=== PATIENT | female | born 1930 | race Caucasian/White ===

== ENCOUNTER → 2016-11-13 | Outpatient (CLI) | payer MEDICARE, BC ==
[~2016-11-13] MED LIST: ARMO30TA PO; ATOR10TA15 PO; CHOL50006; GABA300C5 PO; TRIA1SPR6 EACH NARE; TYLETAB34 PO
[2016-11-13 09:23] LABS: AUTOMATED NEUTROPHIL # 1.5 TH/MM3 (1.8-7.7); BASOPHIL % 0.8 % (0.0-2.0); EOSINOPHIL # 0.5 TH/MM3 (0-0.4); EOSINOPHIL % 13.2 % (0.0-4.0); HEMATOCRIT 35.7 % (35.0-46.0); HEMO FLAGS DIFF FINAL; LYMPH % 37.4 % (9.0-44.0); LYMPHOCYTE # 1.5 TH/MM3 (1.0-4.8); MEAN CELL VOLUME 97.1 FL (80.0-100.0); MEAN CORPUSCULAR HEMOGLOBIN 31.7 PG (27.0-34.0); MEAN CORPUSCULAR HGB CONC 32.7 % (32.0-36.0); MONO % 10.6 % (0.0-8.0); PLATELET COUNT 173 TH/MM3 (150-450); RED BLOOD COUNT 3.68 MIL/MM3 (4.00-5.30); RED CELL DISTRIBUTION WIDTH 13.3 % (11.6-17.2); WHITE BLOOD COUNT 3.9 TH/MM3 (4.0-11.0)
[2016-11-13 09:29] LABS: ANION GAP 5 MEQ/L (5-15); AST (GOT) 26 U/L (15-37); BICARBONATE 32.6 MEQ/L (21.0-32.0); BLOOD UREA NITROGEN 14 MG/DL (7-18); CHLORIDE 104 MEQ/L (98-107); GLOMERULAR FILTRATION RATE 83 ML/MIN (>89); GLUCOSE,FASTING 75 MG/DL (74-99); POTASSIUM 4.2 MEQ/L (3.5-5.1); SODIUM (NA) 142 MEQ/L (136-145)
[2016-11-13 09:40] LABS: ALKALINE PHOSPHATASE 92 U/L (45-117); ALT (GPT) 23 U/L (10-53); HDL CHOLESTEROL 66.9 MG/DL (40.0-60.0); LDL CHOLESTEROL 118 MG/DL (0-99); THYROXINE (T4) 6.7 MCG/DL (4.8-13.9); TOTAL BILIRUBIN ADULT 0.4 MG/DL (0.2-1.0)
[2016-11-13 16:05] LABS: HEMOGLOBIN A1b 1.5 %; HEMOGLOBIN Ao 85.2 %; HEMOGLOBIN LA1C 1.9 %
== END ==
LOC: PLAB 07:21
PROVIDERS: ATTEND Family Medicine
DX: E78.2 Mixed hyperlipidemia (principal); I10 Essential (primary) hypertension; E10.8 Type 1 diabetes mellitus with unspecified complications; E03.8 Other specified hypothyroidism; E55.9 Vitamin D deficiency, unspecified; Z79.899 Other long term (current) drug therapy
CPT/HCPCS: 36415; 80053; 80061; 82306; 83036; 84436; 84443; 84480; 85025

== ENCOUNTER → 2017-02-12 | Outpatient (CLI) | payer MEDICARE, BC ==
[2017-02-12 09:20] LABS: ANION GAP 5 MEQ/L (5-15); AST (GOT) 21 U/L (15-37); AUTOMATED NEUTROPHIL # 2.4 TH/MM3 (1.8-7.7); BASOPHIL # 0.1 TH/MM3 (0-0.2); BASOPHIL % 1.8 % (0.0-2.0); BLOOD UREA NITROGEN 17 MG/DL (7-18); CHLORIDE 105 MEQ/L (98-107); EOSINOPHIL # 0.5 TH/MM3 (0-0.4); EOSINOPHIL % 11.4 % (0.0-4.0); GLOMERULAR FILTRATION RATE 82 ML/MIN (>89); GLUCOSE,FASTING 82 MG/DL (74-99); HEMO FLAGS DIFF FINAL; LYMPH % 28.3 % (9.0-44.0); LYMPHOCYTE # 1.3 TH/MM3 (1.0-4.8); MEAN CELL VOLUME 98.4 FL (80.0-100.0); MEAN CORPUSCULAR HEMOGLOBIN 31.4 PG (27.0-34.0); MEAN CORPUSCULAR HGB CONC 31.9 % (32.0-36.0); MONO % 8.1 % (0.0-8.0); NEUT % 50.4 % (16.0-70.0); PLATELET COUNT 159 TH/MM3 (150-450); RED BLOOD COUNT 3.76 MIL/MM3 (4.00-5.30); RED CELL DISTRIBUTION WIDTH 14.2 % (11.6-17.2); SODIUM (NA) 142 MEQ/L (136-145); WHITE BLOOD COUNT 4.7 TH/MM3 (4.0-11.0)
[2017-02-12 09:26] LABS: ALKALINE PHOSPHATASE 84 U/L (45-117); ALT (GPT) 22 U/L (10-53); TOTAL BILIRUBIN ADULT 0.4 MG/DL (0.2-1.0)
== END ==
LOC: PLAB 07:13
PROVIDERS: ATTEND Family Medicine
DX: I10 Essential (primary) hypertension (principal); Z79.899 Other long term (current) drug therapy
CPT/HCPCS: 36415; 80053; 85025

== ENCOUNTER → 2017-03-14 | Outpatient (CLI) | payer MEDICARE, BC ==
[2017-03-14 09:13] LABS: AUTOMATED NEUTROPHIL # 2.6 TH/MM3 (1.8-7.7); BASOPHIL # 0.1 TH/MM3 (0-0.2); BASOPHIL % 1.3 % (0.0-2.0); EOSINOPHIL # 0.5 TH/MM3 (0-0.4); EOSINOPHIL % 10.2 % (0.0-4.0); HEMATOCRIT 37.1 % (35.0-46.0); HEMO FLAGS DIFF FINAL; LYMPH % 31.7 % (9.0-44.0); LYMPHOCYTE # 1.7 TH/MM3 (1.0-4.8); MEAN CELL VOLUME 98.6 FL (80.0-100.0); MEAN CORPUSCULAR HEMOGLOBIN 32.8 PG (27.0-34.0); MEAN CORPUSCULAR HGB CONC 33.3 % (32.0-36.0); MONO % 7.9 % (0.0-8.0); NEUT % 48.9 % (16.0-70.0); PLATELET COUNT 192 TH/MM3 (150-450); RED BLOOD COUNT 3.77 MIL/MM3 (4.00-5.30); RED CELL DISTRIBUTION WIDTH 14.3 % (11.6-17.2); WHITE BLOOD COUNT 5.4 TH/MM3 (4.0-11.0)
[2017-03-14 09:38] LABS: BLOOD UREA NITROGEN 14 MG/DL (7-18)
[2017-03-14 09:43] LABS: URIC ACID 2.1 MG/DL (2.6-6.0)
[2017-03-14 09:54] LABS: WESTERGREN SEDIMENTATION RATE 57 mm/hr (0-30)
[2017-03-14 09:55] LABS: ALKALINE PHOSPHATASE 137 U/L (45-117); FREE T3 2.56 PG/ML (2.18-3.98); RHEUMATOID FACTOR TRIGGER LESS THAN 10.0 IU/ML (0.0-14.9); THYROXINE (T4) 5.7 MCG/DL (4.8-13.9)
[2017-03-14 10:35] LABS: STREP ANTIBODY SCREEN NEG (NEG)
[2017-03-14 18:10] LABS: HEMOGLOBIN A1b 1.6 %; HEMOGLOBIN Ao 85.1 %; HEMOGLOBIN LA1C 1.9 %
[2017-03-15 15:04] LABS: ANA SCREEN NEG (NEG)
== END ==
LOC: PLAB 11:17
PROVIDERS: ATTEND Family Medicine
DX: I10 Essential (primary) hypertension (principal); E10.8 Type 1 diabetes mellitus with unspecified complications; E03.8 Other specified hypothyroidism; Z79.899 Other long term (current) drug therapy; M06.9 Rheumatoid arthritis, unspecified
CPT/HCPCS: 36415; 82310; 83036; 84075; 84100; 84436; 84443; 84481; 84520; 84550; 85025; 85652; 86038; 86140; 86403; 86430

== ENCOUNTER → 2017-07-15 | Outpatient (CLI) | payer MEDICARE, BC ==
[2017-07-15 10:27] LABS: AUTOMATED NEUTROPHIL # 2.9 TH/MM3 (1.8-7.7); BASOPHIL # 0.1 TH/MM3 (0-0.2); EOSINOPHIL # 0.4 TH/MM3 (0-0.4); EOSINOPHIL % 8.2 % (0.0-4.0); HEMATOCRIT 38.4 % (35.0-46.0); HEMO FLAGS DIFF FINAL; LYMPHOCYTE # 1.4 TH/MM3 (1.0-4.8); MEAN CELL VOLUME 99.6 FL (80.0-100.0); MEAN CORPUSCULAR HEMOGLOBIN 32.7 PG (27.0-34.0); MEAN CORPUSCULAR HGB CONC 32.9 % (32.0-36.0); MONO % 9.4 % (0.0-8.0); NEUT % 54.4 % (16.0-70.0); PLATELET COUNT 177 TH/MM3 (150-450); RED BLOOD COUNT 3.86 MIL/MM3 (4.00-5.30); RED CELL DISTRIBUTION WIDTH 13.7 % (11.6-17.2); WHITE BLOOD COUNT 5.3 TH/MM3 (4.0-11.0)
[2017-07-15 10:37] LABS: ANION GAP 5 MEQ/L (5-15); AST (GOT) 26 U/L (15-37); BICARBONATE 31.6 MEQ/L (21.0-32.0); BLOOD UREA NITROGEN 14 MG/DL (7-18); CHLORIDE 104 MEQ/L (98-107); GLOMERULAR FILTRATION RATE 92 ML/MIN (>89); GLUCOSE,FASTING 83 MG/DL (74-99); POTASSIUM 4.2 MEQ/L (3.5-5.1); SODIUM (NA) 141 MEQ/L (136-145)
[2017-07-15 10:48] LABS: ALKALINE PHOSPHATASE 97 U/L (45-117); ALT (GPT) 20 U/L (10-53); HDL CHOLESTEROL 84.8 MG/DL (40.0-60.0); LDL CHOLESTEROL 133 MG/DL (0-99); THYROXINE (T4) 8.3 MCG/DL (4.8-13.9); TOTAL BILIRUBIN ADULT 0.5 MG/DL (0.2-1.0)
== END ==
LOC: PLAB 06:49
PROVIDERS: ATTEND Family Medicine
DX: I10 Essential (primary) hypertension (principal); E78.2 Mixed hyperlipidemia; E03.8 Other specified hypothyroidism; Z79.899 Other long term (current) drug therapy
CPT/HCPCS: 36415; 80053; 80061; 84436; 84443; 84480; 85025

== ENCOUNTER 2017-08-15 16:43 | Inpatient (IN) | payer MEDICARE, BC ==
[~2017-08-15] VITALS: Ht 160 cm; Wt 59.8 kg
[2017-08-15 16:46] VITALS: BP 174/89; PULSE 80; RESP 16; TEMP 97.9; O2SAT 93
--- NOTE | 2017-08-15 17:19 | PD ---
HPI Chief Complaint: General Weakness Time Seen by Provider: 17:08 Travel History International Travel<30 days: No Contact w/Intl Traveler<30days: No Traveled to known affect area: No History of Present Illness HPI 87-year-old female presents the emergency department with ongoing generalized weakness and question of ongoing urinary tract infection. Patient was seen by Dr. Horner on Saturday and placed on Macrobid for UTI. Patient continues to have chills, urinary frequency, and generalized weakness and "not feeling well". Patient denies significant pain or cramps. No shortness of breath. No specific fevers. She is allergic to sulfa. PFSH Past Medical History Arthritis: Yes Autoimmune Disease: No Blood Disorders: No Cancer: Yes (BREAST) Cardiovascular Problems: Yes High Cholesterol: Yes Chemotherapy: No Chest Pain: Yes Coronary Artery Disease: Yes Diminished Hearing: No Endocrine: No Gastrointestinal Disorders: Yes Genitourinary: No Hypertension: Yes Immune Disorder: No Musculoskeletal: Yes Neurologic: No Psychiatric: No Reproductive: No Respiratory: Yes (O2 @NIGHT) Integumentary: Yes Radiation Therapy: Yes Ulcer: Yes ?: Not Tubal Ligation: Yes Past Surgical History AICD: No Appendectomy: Yes Arteriovenous Shunt: No Hysterectomy: Yes (1954) Insulin Pump: No Joint Replacement: No Pacemaker: No Thoracic Surgery: Yes Tonsillectomy: Yes Other Surgery: Yes (LT MASTECTOMY 1986-RT LUMPECTOMY 1989) Social History Alcohol Use: Yes (RARE) Tobacco Use: No Substance Use: No Allergies-Medications (Allergen,Severity, Reaction): Coded Allergies: Sulfa (Sulfonamide Antibiotics) (Unverified Allergy, Unknown, 08/15/17) Reported Meds & Prescriptions Reported Meds & Active Scripts Active Reported Nitrofurantoin Monohydrate Macrocrystals (Nitrofurantoin Monoh/Nitrofur Macro) 100 Mg Cap 100 Mg PO BID Enalapril (Enalapril Maleate) 2.5 Mg Tab 2.5 Mg PO BID Review of Systems Except as stated in HPI: all other systems reviewed are Neg General / Constitutional: No: Fever Eyes: No: Visual changes HENT: No: Headaches Cardiovascular: No: Chest Pain or Discomfort Respiratory: No: Shortness of Breath Gastrointestinal: Positive: Nausea, Loss of Appetite, No: Abdominal Pain Genitourinary: Positive: Frequency, No: Dysuria Musculoskeletal: No: Pain Skin: No Rash Neurologic: Positive: Weakness (generalized) Psychiatric: No: Depression Endocrine: No: Polydipsia Hematologic/Lymphatic: No: Easy Bruising Physical Exam Narrative GENERAL: Patient appears in no obvious distress. SKIN: Warm and dry. HEAD: Atraumatic. Normocephalic. EYES: Pupils equal and round. No scleral icterus. No injection or drainage. ENT: No nasal bleeding or discharge. Mucous membranes pink and moist. Pharynx is clear. Airway is patent. NECK: Trachea midline. Supple and nontender. CARDIOVASCULAR: Regular rate and rhythm. RESPIRATORY: No accessory muscle use. Clear to auscultation. Breath sounds equal bilaterally. GASTROINTESTINAL: Abdomen soft, non-tender, nondistended. Hepatic and splenic margins not palpable. MUSCULOSKELETAL: Extremities without clubbing, cyanosis, or edema. No obvious deformities. NEUROLOGICAL: Awake and alert. No obvious cranial nerve deficits. Motor grossly within normal limits. Five out of 5 muscle strength in the arms and legs. Normal speech. PSYCHIATRIC: Appropriate mood and affect; insight and judgment normal. Data Data Last Documented VS Vital Signs Date Time Temp Pulse Resp B/P (MAP) Pulse Ox O2 Delivery O2 Flow Rate FiO2 08/15/17 18:14 93 Nasal Cannula 2.00 08/15/17 18:12 70 23 154/75 (101) 156/68 (97) 08/15/17 16:46 97.9 Orders Orders Complete Blood Count With Diff (08/15/17 17:17) Comprehensive Metabolic Panel (08/15/17 17:17) Lipase (08/15/17 17:17) Lactic Acid (08/15/17 17:17) Prothrombin Time / Inr (Pt) (08/15/17 17:17) Act Partial Throm Time (Ptt) (08/15/17 17:17) Urinalysis - C+S If Indicated (08/15/17 17:17) Iv Access Insert/Monitor (08/15/17 17:17) Ecg Monitoring (08/15/17 17:17) Oximetry (08/15/17 17:17) Ondansetron Inj (Zofran Inj) (08/15/17 17:30) Sodium Chloride 0.9% Flush (Ns Flush) (08/15/17 17:30) Electrocardiogram (12/21/17 17:17) Sodium Chlorid 0.9% 500 Ml Inj (Ns 500 M (08/15/17 17:30) Chest, Single Ap (08/15/17 17:17) Urine Culture (08/15/17 17:30) Ckmb (Isoenzyme) Profile (08/15/17 17:56) Magnesium (Mg) (08/15/17 17:56) Act Partial Throm Time (Ptt) (08/15/17 17:56) Troponin I (08/15/17 17:56) Bilateral Bp Monitoring (08/15/17 17:56) Oxygen Administration (08/15/17 17:56) Sodium Chloride 0.9% Flush (Ns Flush) (08/15/17 18:00) Ct Abd/Pel W Iv Contrast(Rout) (08/15/17 18:11) Iohexol 350 Inj (Omnipaque 350 Inj) (08/15/17 18:37) Ceftriaxone Inj (Rocephin Inj) (08/15/17 19:00) Admit Order (Ed Use Only) (08/15/17 19:22) Labs Laboratory Tests Test 08/15/17 17:30 08/15/17 17:35 Urine Color YELLOW Urine Turbidity HAZY Urine pH 5.5 Urine Specific [place] 1.011 Urine Protein TRACE mg/dL Urine Glucose (UA) NEG mg/dL Urine Ketones NEG mg/dL Urine Occult Blood TRACE Urine Nitrite NEG Urine Bilirubin NEG Urine Urobilinogen 2.0 MG/DL Urine Leukocyte Esterase LARGE Urine RBC 2 /hpf Urine WBC 8 /hpf Urine Squamous Epithelial Cells 11 /hpf Urine Transitional Epithelial Cells 1 /hpf Urine Bacteria OCC /hpf Microscopic Urinalysis Comment CULTURE INDICATED White Blood Count 7.1 TH/MM3 Red Blood Count 3.78 MIL/MM3 Hemoglobin 12.3 GM/DL Hematocrit 37.0 % Mean Corpuscular Volume 97.9 FL Mean Corpuscular Hemoglobin 32.5 PG Mean Corpuscular Hemoglobin Concent 33.2 % Red Cell Distribution Width 13.5 % Platelet Count 163 TH/MM3 Mean Platelet Volume 8.6 FL Neutrophils (%) (Auto) 69.9 % Lymphocytes (%) (Auto) 10.8 % Monocytes (%) (Auto) 5.5 % Eosinophils (%) (Auto) 13.4 % Basophils (%) (Auto) 0.4 % Neutrophils # (Auto) 5.0 TH/MM3 Lymphocytes # (Auto) 0.8 TH/MM3 Monocytes # (Auto) 0.4 TH/MM3 Eosinophils # (Auto) 1.0 TH/MM3 Basophils # (Auto) 0.0 TH/MM3 CBC Comment DIFF FINAL Differential Comment Prothrombin Time 10.7 SEC Prothromb Time International Ratio 1.1 RATIO Activated Partial Thromboplast Time 22.6 SEC Blood Urea Nitrogen 16 MG/DL Creatinine 0.80 MG/DL Random Glucose 112 MG/DL Total Protein 7.7 GM/DL Albumin 3.0 GM/DL Calcium Level 9.3 MG/DL Alkaline Phosphatase 370 U/L Aspartate Amino Transf (AST/SGOT) 195 U/L Alanine Aminotransferase (ALT/SGPT) 173 U/L Total Bilirubin 0.8 MG/DL Sodium Level 138 MEQ/L Potassium Level 3.7 MEQ/L Chloride Level 103 MEQ/L Carbon Dioxide Level 30.8 MEQ/L Anion Gap 4 MEQ/L Estimat Glomerular Filtration Rate 68 ML/MIN Lactic Acid Level 1.2 mmol/L Magnesium Level 1.9 MG/DL Total Creatine Kinase 90 U/L Troponin I LESS THAN 0.02 NG/ML Lipase 136 U/L [facility] Medical Decision Making Medical Screen Exam Complete: Yes Emergency Medical Condition: Yes Medical Record Reviewed: Yes Differential Diagnosis Generalized weakness. Urinary tract infection not responding to outpatient therapy. Nausea. Narrative Course Patient appears medically stable at time of exam. CBC is unremarkable. CMP shows GFR 68, random glucose is 112. Lactic acid is 1.2, magnesium is 1.9, calcium is 9.3, AST is elevated at 195 as well as ALT of 173 with an alkaline phosphatase of 370 which is new for the patient. Urinalysis suggests ongoing urinary tract infection with large leukocytes esterase, 8 wbc's per high-power field and occasional dysuria. The urine is cultured again. CT of the abdomen/pelvis is ordered with IV contrast due to the increased LFTs and alkaline phosphatase. Patient is a 4 mg ODT and IV. Patient also given 500 mL normal saline bolus. CT shows no obvious acute findings. There is some bilateral consolidations noted in both lungs. Call was placed to Dr. Horner to discuss admission. Diagnosis Primary Impression: Elevated LFTs Additional Impressions: UTI (urinary tract infection) Qualified Codes: N30.00 - Acute cystitis without hematuria Failure of outpatient treatment Admitting Information Admitting Physician Requests: Observation Condition: Stable Armond Carcamow F. PA Aug 15, 2017 17:19
[2017-08-15] MEDS ORDERED: NITR100C4 PO (17:28)
[2017-08-15] MEDS ORDERED: ENAL2.5T PO (17:28)
[2017-08-15] MEDS ORDERED: ONDANSETRON HCL 4 MG/2 ML VIAL IVP ONE (17:30)
[2017-08-15] MEDS ORDERED: SODIUM CHLORIDE 0.9% FLUSH 10 ML FLUSH IV FLUSH PRN (17:30)
[2017-08-15] MEDS ORDERED: SODIUM CHLORID 0.9% 500 ML INJ 500 ML IV ONE (17:30)
--- NOTE | 2017-08-15 17:47 | RADRPT ---
EXAM DATE/TIME: 08/15/2017 17:39 [facility] COMPARISON: CHEST SINGLE AP, February 25, 2015, 12:24. INDICATIONS : Short of breath. MEDICAL HISTORY : Carcinoma, breast. SURGICAL HISTORY : None. ENCOUNTER: Initial ACUITY: 2 days PAIN SCORE: 0/10 LOCATION: Bilateral chest FINDINGS: Mild interstitial prominence similar to prior exam. No new focal pleural or parenchymal opacities. Ca rdiomediastinal contours are within normal limits. Surgical clips noted in the axilla bilaterally. Re mainder of the exam is unchanged. CONCLUSION: 1. No acute abnormality or significant interval change. Maximo Gan MD on August 15, 2017 at 17:44 Board Certified Radiologist. This report was verified electronically.
[2017-08-15 17:48] LABS: BASOPHIL % 0.4 % (0.0-2.0); EOSINOPHIL % 13.4 % (0.0-4.0); HEMO FLAGS DIFF FINAL; LYMPH % 10.8 % (9.0-44.0); LYMPHOCYTE # 0.8 TH/MM3 (1.0-4.8); MEAN CELL VOLUME 97.9 FL (80.0-100.0); MEAN CORPUSCULAR HEMOGLOBIN 32.5 PG (27.0-34.0); MEAN CORPUSCULAR HGB CONC 33.2 % (32.0-36.0); MONO % 5.5 % (0.0-8.0); NEUT % 69.9 % (16.0-70.0); PLATELET COUNT 163 TH/MM3 (150-450); RED BLOOD COUNT 3.78 MIL/MM3 (4.00-5.30); RED CELL DISTRIBUTION WIDTH 13.5 % (11.6-17.2); WHITE BLOOD COUNT 7.1 TH/MM3 (4.0-11.0)
[2017-08-15 17:51] LABS: BACTERIA, URINE OCC /hpf; BLOOD, URINE TRACE (NEG); COMMENT (UR) CULTURE INDICATED; CULTURE IF INDICATED CULTURE INDICATED; GLUCOSE,URINE NEG (NEG); KETONE, URINE NEG (NEG); NITRITE,URINE NEG (NEG); PH, URINE 5.5 (5.0-8.5); SQUAMOUS EPITHELIAL CELL URINE 11 /hpf (0-5); TRANSITIONAL EPI CELLS, URINE 1 /hpf; URINE COLOR YELLOW (YELLW/STRAW)
[2017-08-15 17:56] LABS: APTT (PATIENT) 22.6 SEC (24.3-30.1); INTERNATIONAL NORMALIZED RATIO 1.1 RATIO; PROTHROMBIN TIME - PATIENT 10.7 SEC (9.8-11.6)
[2017-08-15] MEDS ORDERED: SODIUM CHLORIDE 0.9% FLUSH 10 ML FLUSH IVF PRN (18:00)
--- NOTE | 2017-08-15 18:00 | PD ---
Physical Exam Date Seen by Provider: Aug 15, 2017 Narrative This patient presents with generalized weakness. She states that she was diagnosed with the urinary tract infection a couple days ago by her primary care provider and given Macrobid. She states that she has continued to be very fatigued. She has basically been bedridden. She subsequently presents to us today for treatment. Data Data Last Documented VS Vital Signs Date Time Temp Pulse Resp B/P (MAP) Pulse Ox O2 Delivery O2 Flow Rate FiO2 08/15/17 17:40 (117) Room Air 08/15/17 16:46 97.9 80 16 93 Orders Orders Complete Blood Count With Diff (08/15/17 17:17) Comprehensive Metabolic Panel (08/15/17 17:17) Lipase (08/15/17 17:17) Lactic Acid (08/15/17 17:17) Prothrombin Time / Inr (Pt) (08/15/17 17:17) Act Partial Throm Time (Ptt) (08/15/17 17:17) Urinalysis - C+S If Indicated (08/15/17 17:17) Iv Access Insert/Monitor (08/15/17 17:17) Ecg Monitoring (08/15/17 17:17) Oximetry (08/15/17 17:17) Ondansetron Inj (Zofran Inj) (08/15/17 17:30) Sodium Chloride 0.9% Flush (Ns Flush) (08/15/17 17:30) Electrocardiogram (08/15/17 17:17) Sodium Chlorid 0.9% 500 Ml Inj (Ns 500 M (08/15/17 17:30) Chest, Single Ap (08/15/17 17:17) Urine Culture (08/15/17 17:30) Labs Laboratory Tests Test 08/15/17 17:30 08/15/17 17:35 Urine Color YELLOW Urine Turbidity HAZY Urine pH 5.5 Urine Specific [place] 1.011 Urine Protein TRACE mg/dL Urine Glucose (UA) NEG mg/dL Urine Ketones NEG mg/dL Urine Occult Blood TRACE Urine Nitrite NEG Urine Bilirubin NEG Urine Urobilinogen 2.0 MG/DL Urine Leukocyte Esterase LARGE Urine RBC 2 /hpf Urine WBC 8 /hpf Urine Squamous Epithelial Cells 11 /hpf Urine Transitional Epithelial Cells 1 /hpf Urine Bacteria OCC /hpf Microscopic Urinalysis Comment CULTURE INDICATED White Blood Count 7.1 TH/MM3 Red Blood Count 3.78 MIL/MM3 Hemoglobin 12.3 GM/DL Hematocrit 37.0 % Mean Corpuscular Volume 97.9 FL Mean Corpuscular Hemoglobin 32.5 PG Mean Corpuscular Hemoglobin Concent 33.2 % Red Cell Distribution Width 13.5 % Platelet Count 163 TH/MM3 Mean Platelet Volume 8.6 FL Neutrophils (%) (Auto) 69.9 % Lymphocytes (%) (Auto) 10.8 % Monocytes (%) (Auto) 5.5 % Eosinophils (%) (Auto) 13.4 % Basophils (%) (Auto) 0.4 % Neutrophils # (Auto) 5.0 TH/MM3 Lymphocytes # (Auto) 0.8 TH/MM3 Monocytes # (Auto) 0.4 TH/MM3 Eosinophils # (Auto) 1.0 TH/MM3 Basophils # (Auto) 0.0 TH/MM3 CBC Comment DIFF FINAL Differential Comment MDM Supervised Visit with YUNIEL: Yes Narrative Course I, Dr. Salazar, have reviewed the advance practice practitioner's documentation and am in agreement, met with the patient face to face, made the diagnosis, and the medical decision making was done by me. *My assessment and Findings: Patient is awake and alert. She is no acute distress. Please see Sam Carcamo PA-C's note for results of laboratory and radiographic evaluation, ED course, final diagnosis and disposition Mila Salazar MD Aug 15, 2017 18:00
[2017-08-15 18:07] LABS: ALT (GPT) 173 U/L (10-53); ANION GAP 4 MEQ/L (5-15); AST (GOT) 195 U/L (15-37); BICARBONATE 30.8 MEQ/L (21.0-32.0); BLOOD UREA NITROGEN 16 MG/DL (7-18); CHLORIDE 103 MEQ/L (98-107); GLOMERULAR FILTRATION RATE 68 ML/MIN (>89); POTASSIUM 3.7 MEQ/L (3.5-5.1); SODIUM (NA) 138 MEQ/L (136-145)
[2017-08-15 18:09] LABS: ALKALINE PHOSPHATASE 370 U/L (45-117); TOTAL BILIRUBIN ADULT 0.8 MG/DL (0.2-1.0)
[2017-08-15 18:11] LABS: MAGNESIUM 1.9 MG/DL (1.5-2.5)
[2017-08-15 18:12] VITALS: BP_SYST 154; BP_SYST 156; BP_DIAS 68; BP_DIAS 75; PULSE 70; RESP 23; O2SAT 91
[2017-08-15 18:37] LABS: CREATINE KINASE 90 U/L (26-192)
[2017-08-15] MEDS ORDERED: IOHEXOL 350 MG/ML 10 ML VIAL (for RAD DIAG) IVCONTRAST ONE (18:37)
[2017-08-15] MEDS ORDERED: cefTRIAXone INJ 1,000 MG in SODIUM CHLORIDE 0.9% INJ 100 ML IV ONE (19:00)
--- NOTE | 2017-08-15 19:04 | RADRPT ---
EXAM DATE/TIME: 08/15/2017 18:35 [facility] COMPARISON: No previous studies available for comparison. INDICATIONS : Abdominal pain. IV CONTRAST: 90 cc Omnipaque 350 (iohexol) IV ORAL CONTRAST: No oral contrast ingested. RADIATION DOSE: 7.24 CTDIvol (mGy) MEDICAL HISTORY : Hypertension. Carcinoma, breast. SURGICAL HISTORY : Hysterectomy. Appendectomy.Tubal ligation. ENCOUNTER: Initial ACUITY: 1 day PAIN SCALE: 5/10 LOCATION: abdomen TECHNIQUE: Volumetric scanning of the abdomen and pelvis was performed. Using automated exposure control and ad justment of the mA and/or kV according to patient size, radiation dose was kept as low as reasonably achievable to obtain optimal diagnostic quality images. DICOM format image data is available electro nically for review and comparison. FINDINGS: LOWER LUNGS: Patchy areas of infiltrate with air alveologram's in the posterior and lateral right lower lung. No evidence of pleural effusion. LIVER: Homogeneous density without lesion. There is no dilation of the biliary tree. The common bile duct measures 7 mm. No calcified gallstones in contracted gallbladder. SPLEEN: Normal size without lesion. PANCREAS: Within normal limits. KIDNEYS: Normal in size and shape. There is no mass, stone or hydronephrosis. 3 cm right renal cyst. ADRENAL GLANDS: Within normal limits. VASCULAR: There is no aortic aneurysm. BOWEL/MESENTERY: Mild amount of stool in the right and transverse colon. There is gas in the lower left the mid sigm oid colon and with the loop measuring 3.8 cm in length. No dilated loops of small bowel.. ABDOMINAL WALL: Within normal limits. RETROPERITONEUM: There is no lymphadenopathy. BLADDER: No wall thickening or mass. REPRODUCTIVE: Within normal limits. INGUINAL: There is no lymphadenopathy or hernia. MUSCULOSKELETAL: Moderate degenerative changes in the posterior elements of the lower lumbar spine. CONCLUSION: 1. Partially consolidative infiltrates in the lower posterior and lateral right lung. 2. No dilated loops of small bowel. Wm Quispe MD on August 15, 2017 at 18:55 Board Certified Radiologist. This report was verified electronically.
[2017-08-15 19:41] VITALS: BP 183/74; PULSE 71; RESP 16
[2017-08-15] MEDS ORDERED: ZOLPIDEM TARTRATE 5 MG TAB PO PRN ×2 (19:45→21:00)
[2017-08-15] MEDS ORDERED: BISACODYL 10 MG SUPP RECTAL PRN (19:45)
[2017-08-15] MEDS ORDERED: MAGNESIUM HYDROXIDE SUSP 30 ML CUP PO PRN (19:45)
[2017-08-15] MEDS ORDERED: NALOXONE HCL 0.4 MG/ML AMP IV PUSH PRN (19:45)
[2017-08-15] MEDS ORDERED: SENNOSIDES 8.6 MG TAB PO PRN (19:45)
[2017-08-15] MEDS ORDERED: LACTULOSE SYRUP 20 GM/30 ML CUP PO PRN (19:45)
[2017-08-15] MEDS ORDERED: ONDANSETRON HCL 4 MG/2 ML VIAL IVP PRN (19:45)
[2017-08-15] MEDS ORDERED: ACETAMINOPHEN 325 MG TAB PO PRN (19:45)
[2017-08-15 20:45] VITALS: BP 170/81; PULSE 94; RESP 20
[2017-08-15 22:11] VITALS: BP 155/81; PULSE 74; RESP 17; TEMP 97.6; O2SAT 93
[2017-08-15] MEDS: ENALAPRIL MALEATE 2.5 MG TAB PO SCH (22:53)
[2017-08-15] MEDS: DOCUSATE SODIUM 50 MG/SENNA 8.6 MG TAB PO SCH (22:53)
[2017-08-15] MEDS: SODIUM CHLOR 0.45% 1000 ML INJ 1,000 ML IV SCH (22:54)
[2017-08-15] MEDS: ENOXAPARIN SODIUM 30 MG/0.3 ML SYRINGE SQ SCH (22:54)
--- NOTE | 2017-08-15 23:41 | EKG ---
Date Performed: 08/15/2017 Time Performed: 17:54:09 PTAGE: 87 years EKG: Sinus rhythm WITH OCCASIONAL SUPRAVENTRICULAR PREMATURE COMPLEXES MARKED LEFT AXIS DEVIATION LEFT BUNDLE BRANCH B LOCK ABNORMAL ECG PREVIOUS TRACING : 02/25/2015 12.07 Compared to prior tracing no significant change DOCTOR: Marquise Strickland Interpretating Date/Time 08/15/2017 23:39:30
[2017-08-16] VITALS (7 sets, daily range): BP systolic 137–183; BP diastolic 70–89; PULSE 60–83; RESP 14–20; TEMP 97.2–98.1; O2SAT 95–98
[2017-08-16] MEDS: cefTRIAXone INJ 1,000 MG in SODIUM CHLORIDE 0.9% INJ 100 ML IV SCH ×2 (09:04→21:53)
[2017-08-16] MEDS: DOCUSATE SODIUM 50 MG/SENNA 8.6 MG TAB PO SCH ×2 (09:05→21:52)
[2017-08-16] MEDS: ENALAPRIL MALEATE 2.5 MG TAB PO SCH ×2 (09:05→21:52)
[2017-08-16] MEDS: SODIUM CHLOR 0.45% 1000 ML INJ 1,000 ML IV SCH (09:07)
[2017-08-16 11:05] LABS: AUTOMATED NEUTROPHIL # 2.6 TH/MM3 (1.8-7.7); BASOPHIL % 0.8 % (0.0-2.0); EOSINOPHIL # 1.1 TH/MM3 (0-0.4); EOSINOPHIL % 23.3 % (0.0-4.0); HEMATOCRIT 34.9 % (35.0-46.0); HEMO FLAGS DIFF FINAL; LYMPH % 15.7 % (9.0-44.0); LYMPHOCYTE # 0.7 TH/MM3 (1.0-4.8); MEAN CELL VOLUME 98.5 FL (80.0-100.0); MEAN CORPUSCULAR HEMOGLOBIN 33.1 PG (27.0-34.0); MEAN CORPUSCULAR HGB CONC 33.6 % (32.0-36.0); MONO % 4.9 % (0.0-8.0); NEUT % 55.3 % (16.0-70.0); PLATELET COUNT 188 TH/MM3 (150-450); RED BLOOD COUNT 3.55 MIL/MM3 (4.00-5.30); RED CELL DISTRIBUTION WIDTH 13.8 % (11.6-17.2); WHITE BLOOD COUNT 4.7 TH/MM3 (4.0-11.0)
--- NOTE | 2017-08-16 11:27 | HHI.HP ---
History of Present Illness Primary Care Physician Kobe Tapia, DO Admission Diagnosis UTI/failure to outpatient therapy/elevated LFTs/weakness Diagnoses: History of Present Illness pt treated as an op with macrobid but continued to decline presented to ED weak and frail admitted for uti Review of Systems Constitutional: COMPLAINS OF: Fatigue Genitourinary: COMPLAINS OF: Urinary frequency Past Family Social History Allergies: Coded Allergies: Sulfa (Sulfonamide Antibiotics) (Unverified Allergy, Unknown, 08/15/17) Past Medical History hypertension depression Past Surgical History L mastectomy and R lumpectomy for breast cancer 1980 Reported Medications Reported Meds & Active Scripts Active Reported Enalapril (Enalapril Maleate) 2.5 Mg Tab 2.5 Mg PO BID Active Ordered Medications Inpatient Medications Acetaminophen (Tylenol) 650 mg Q4H PRN PO TEMP > 100.4; Start 08/15/17 at 19: 45 Bisacodyl (Dulcolax Supp) 10 mg DAILY PRN RECTAL SEVERE CONSITIPATION; Start 08/15/17 at 19:45 Ceftriaxone Sodium 1000 mg/ Sodium Chloride 100 ml @ 200 mls/hr Q12H IV Last administered on 08/16/17 09:04; Start 08/16/17 at 08:00 Enalapril Maleate (Vasotec) 2.5 mg BID PO Last administered on 08/16/17 09:05 ; Start 08/15/17 at 21:00 Enoxaparin Sodium (Lovenox Inj) 30 mg Q24H SQ Last administered on 08/15/17 22:54; Start 08/15/17 at 20:00 Lactulose (Lactulose Liq) 30 ml DAILY PRN PO SEVERE CONSITIPATION; Start 08/15 at 19:45 Magnesium Hydroxide (Milk Of Magnesia Liq) 30 ml Q12H PRN PO Mild constipation ; Start 08/15/17 at 19:45 Naloxone HCl (Narcan Inj) 0.4 mg UNSCH PRN IV PUSH SEE LABEL COMMENTS; Start 08/15/17 at 19:45 Ondansetron HCl (Zofran Inj) 4 mg Q6H PRN IVP NAUSEA OR VOMITING; Start at 19:45 Senna/Docusate Sodium (Eulalia-Colace) 1 tab BID PO Last administered on 09:05; Start 08/15/17 at 21:00 Sennosides (Senokot) 17.2 mg Q12H PRN PO Moderate constipation; Start at 19:45 Sodium Chloride 1,000 ml @ 75 mls/hr [id number] IV Last administered on 09:07; Start 08/15/17 at 19:32 Sodium Chloride (NS Flush) 2 ml UNSCH PRN IVF FLUSH AFTER USING IV ACCESS; Start 08/15/17 at 18:00 Zolpidem Tartrate (Ambien) 5 mg HS PRN PO INSOMNIA; Start 08/15/17 at 21:00 Family History father with bladder cancer Mother of old age Social History non smoker non drinker lives with daughter Physical Exam Vital Signs Vital Signs Date Time Temp Pulse Resp B/P (MAP) Pulse Ox O2 Delivery O2 Flow Rate FiO2 08/16/17 04:00 98.1 83 18 137/74 (95) 97 08/16/17 00:26 97.5 60 18 153/89 (110) 97 08/15/17 23:35 Nasal Cannula 2.00 08/15/17 22:11 97.6 74 17 155/81 (105) 93 08/15/17 22:05 08/15/17 20:45 94 20 170/81 (110) 08/15/17 19:41 71 16 183/74 (110) Room Air 08/15/17 18:14 93 Nasal Cannula 2.00 08/15/17 18:12 70 23 154/75 (101) 91 Room Air 156/68 (97) 08/15/17 17:40 (117) Room Air 08/15/17 16:46 97.9 80 16 174/89 (117) 93 Room Air Physical Exam GENERAL: This is a frail elderly white female in no apparent distress. SKIN: No rashes, ecchymoses or lesions. Cool and dry. HEAD: Atraumatic. Normocephalic. No temporal or scalp tenderness. EYES: Pupils equal round and reactive. Extraocular motions intact. No scleral icterus. No injection or drainage. ENT: Nose without bleeding, purulent drainage or septal hematoma. Throat without erythema, tonsillar hypertrophy or exudate. Uvula midline. Airway patent. NECK: Trachea midline. No JVD or lymphadenopathy. Supple, nontender, no meningeal signs. CARDIOVASCULAR: Regular rate and rhythm without murmurs, gallops, or rubs. RESPIRATORY: Clear to auscultation. Breath sounds equal bilaterally. No wheezes , rales, or rhonchi. GASTROINTESTINAL: Abdomen soft, non-tender, nondistended. No hepato-splenomegaly , or palpable masses. No guarding. MUSCULOSKELETAL: Extremities without clubbing, cyanosis, or edema. No joint tenderness, effusion, or edema noted. No calf tenderness. Negative Homans sign bilaterally. NEUROLOGICAL: Awake and alert. Cranial nerves II through XII intact. Motor and sensory grossly within normal limits. Five out of 5 muscle strength in all muscle groups. Normal speech. Laboratory Laboratory Tests Test 08/15/17 17:30 08/15/17 17:35 08/16/17 10:10 Urine Color YELLOW Urine Turbidity HAZY Urine pH 5.5 Urine Specific [place] 1.011 Urine Protein TRACE Urine Glucose (UA) NEG Urine Ketones NEG Urine Occult Blood TRACE Urine Nitrite NEG Urine Bilirubin NEG Urine Urobilinogen 2.0 Urine Leukocyte Esterase LARGE Urine RBC 2 Urine WBC 8 Urine Squamous Epithelial Cells 11 Urine Transitional Epithelial Cells 1 Urine Bacteria OCC Microscopic Urinalysis Comment CULTURE INDICATED White Blood Count 7.1 4.7 Red Blood Count 3.78 3.55 Hemoglobin 12.3 11.7 Hematocrit 37.0 34.9 Mean Corpuscular Volume 97.9 98.5 Mean Corpuscular Hemoglobin 32.5 33.1 Mean Corpuscular Hemoglobin Concent 33.2 33.6 Red Cell Distribution Width 13.5 13.8 Platelet Count 163 188 Mean Platelet Volume 8.6 9.4 Neutrophils (%) (Auto) 69.9 55.3 Lymphocytes (%) (Auto) 10.8 15.7 Monocytes (%) (Auto) 5.5 4.9 Eosinophils (%) (Auto) 13.4 23.3 Basophils (%) (Auto) 0.4 0.8 Neutrophils # (Auto) 5.0 2.6 Lymphocytes # (Auto) 0.8 0.7 Monocytes # (Auto) 0.4 0.2 Eosinophils # (Auto) 1.0 1.1 Basophils # (Auto) 0.0 0.0 CBC Comment DIFF FINAL DIFF FINAL Differential Comment Prothrombin Time 10.7 Prothromb Time International Ratio 1.1 Activated Partial Thromboplast Time 22.6 Blood Urea Nitrogen 16 Creatinine 0.80 Random Glucose 112 Total Protein 7.7 Albumin 3.0 Calcium Level 9.3 Alkaline Phosphatase 370 Aspartate Amino Transf (AST/SGOT) 195 Alanine Aminotransferase (ALT/SGPT) 173 Total Bilirubin 0.8 Sodium Level 138 Potassium Level 3.7 Chloride Level 103 Carbon Dioxide Level 30.8 Anion Gap 4 Estimat Glomerular Filtration Rate 68 Lactic Acid Level 1.2 Magnesium Level 1.9 Total Creatine Kinase 90 Troponin I LESS THAN 0.02 Lipase 136 Date/Time Source Procedure Growth Status 08/15/17 17:30 Urine Clean Catch Urine Culture - Preliminary NO GROWTH IN 24 HOURS. Resulted Result Diagram: 08/16/17 1010 08/15/17 1735 Imaging Last Impressions Abdomen/Pelvis CT 08/15/17 1811 Signed Impressions: Service Date/Time: July 18:35 - CONCLUSION: 1. Partially consolidative infiltrates in the lower posterior and lateral right lung. 2. No dilated loops of small bowel. Wm Quispe MD Chest X-Ray 08/15/17 1717 Signed Impressions: Service Date/Time: July 17:39 - CONCLUSION: 1. No acute abnormality or significant interval change. Maximo Gan MD Capdimitri VTE Risk Assessment Caprini VTE Risk Assessment: No/Low Risk (score <= 1) Caprini Risk Assessment Model Point Value = 1 Point Value = 2 Point Value = 3 Point Value = 5 Age 41-60 Minor surgery BMI > 25 kg/m2 Swollen legs Varicose veins or History of unexplained or recurrent spontaneous Oral contraceptives or hormone replacement Sepsis (< 1 month) Serious lung disease, including pneumonia (< 1 month) Abnormal pulmonary function Acute myocardial infarction Congestive heart failure (< 1 month) History of inflammatory bowel disease Medical patient at bed rest Age 61-74 Arthroscopic surgery Major open surgery (> 45 min) Laparoscopic surgery (> 45 min) Malignancy Confined to bed (> 72 hours) Immobilizing plaster cast Central venous access Age >= 75 History of VTE Family history of VTE Factor V Leiden Prothrombin [id number] Lupus anticoagulant Anticardiolipin antibodies Elevated serum homocysteine Heparin-induced thrombocytopenia Other congenital or acquired thrombophilia Stroke (< 1 month) Elective arthroplasty Hip, pelvis, or leg fracture Acute spinal cord injury (< 1 month) Prophylaxis Regimen Total Risk Factor Score Risk Level Prophylaxis Regimen 0-1 Low Early ambulation 2 Moderate Order ONE of the following: *Sequential Compression Device (SCD) *Heparin 5000 units SQ BID 3-4 Higher Order ONE of the following medications: *Heparin 5000 units SQ TID *Enoxaparin/Lovenox 40 mg SQ daily (WT < 150 kg, CrCl > 30 mL/min) *Enoxaparin/Lovenox 30 mg SQ daily (WT < 150 kg, CrCl > 10-29 mL/min) *Enoxaparin/Lovenox 30 mg SQ BID (WT < 150 kg, CrCl > 30 mL/min) AND/OR *Sequential Compression Device (SCD) 5 or more Highest Order ONE of the following medications: *Heparin 5000 units SQ TID (Preferred with Epidurals) *Enoxaparin/Lovenox 40 mg SQ daily (WT < 150 kg, CrCl > 30 mL/min) *Enoxaparin/Lovenox 30 mg SQ daily (WT < 150 kg, CrCl > 10-29 mL/min) *Enoxaparin/Lovenox 30 mg SQ BID (WT < 150 kg, CrCl > 30 mL/min) AND *Sequential Compression Device (SCD) Assessment and Plan Problem List: (1) Pulmonary infiltrate ICD Codes: R91.8 - Other nonspecific abnormal finding of lung field Plan: on rocephin will consult pulmonary (2) UTI (urinary tract infection) ICD Codes: N39.0 - Urinary tract infection, site not specified Status: Acute Assessment and Plan pulmonary infiltrate with uti and elevated LFT consult pulmonology and GI Discussed Condition With patient and daughter Problem Qualifiers (1) UTI (urinary tract infection): Qualified Codes: N30.00 - Acute cystitis without hematuria Kobe Tapia DO Aug 16, 2017 11:27
[2017-08-16 11:34] LABS: INDIRECT BILIRUBIN 0.3 MG/DL (0.0-0.8); TOTAL BILIRUBIN ADULT 0.5 MG/DL (0.2-1.0)
--- NOTE | 2017-08-16 17:24 | MB ---
cc: CLINTON PENN M.D., GERALD R. D.O. RINER, MARK M.D. DATE OF 1930 DATE OF CONSULTATION 08/15/[address] Clinton Zimmerman. REASON FOR CONSULTATION The patient is an 87-year-old white female I have been asked to see for further evaluation and management of elevated liver enzymes. The patient was admitted with fatigue and urinary frequency. Treatment was started for a urinary tract infection as an outpatient with nitrofurantoin. She was admitted and antibiotics were changed to ceftriaxone. On admission her enzymes were found to be elevated. She has had no jaundice or right upper quadrant discomfort. She has no known history of elevated liver enzymes. PAST MEDICAL HISTORY 1. Hypertension. 2. Depression. 3. Breast cancer. PAST SURGICAL HISTORY Left mastectomy and right lumpectomy in 1980. MEDICATIONS ON ADMISSION 1. Enalapril 2.5 mg b.i.d. 2. Nitrofurantoin. MEDICATIONS HERE IN THE HOSPITAL 1. Ceftriaxone. 2. Enalapril. 3. Lovenox. ALLERGIES SULFA PRODUCTS NITROFURANTOIN SOCIAL HISTORY Tobacco use none. Alcohol use none. FAMILY HISTORY Unremarkable for liver disease. REVIEW OF SYSTEMS She believes her last colonoscopy was performed over 10 years ago. She has had no dysphagia or odynophagia. No heartburn. No abdominal pains. She has had no history of seizures or strokes. No vision difficulties. She is hard of hearing. She has had no history of pancreatic disorders, thyroid disorders. The surgery as mentioned above. She has had no unexplained weight loss. PHYSICAL EXAMINATION VITAL SIGNS: On physical examination her weight is 60.6 kg. Temperature 98.1, pulse 83, blood pressure 137/74, respiratory rate 18. GENERAL: She is alert. She is oriented x3. She is anicteric. HEENT: Extraocular motions are intact. LYMPHATICS: I appreciate no submandibular, cervical, supraclavicular or axillary adenopathy. LUNGS: Clear. HEART EXAM: Regular rate and rhythm with a 1-2/6 murmur. ABDOMINAL EXAM: Good bowel sounds with no appreciable bruit. The abdomen is soft without tenderness. EXTREMITIES: No pedal edema, Dupuytren's contractures or palmar erythema. LABORATORY STUDIES On admission yesterday white count 7.1 with a hemoglobin of 12.3 and a platelet count of 163. Today white count 4.7 with hemoglobin of 11.7 and platelets of 188. INR yesterday was 1.1, sodium yesterday was 138 with a potassium of 3.7, a BUN of 16, creatinine of 0.8, bilirubin 0.8, AST 195, ALT 173, alkaline phosphatase 370, albumin 3.0. Today's labs reveal a bilirubin of 0.5, AST 99, ALT 136, alkaline phosphatase 336, albumin 2.8. Urinalysis revealed hazy urine with 8 white cells and occasional bacteria with a large amount of leukocyte esterase. IMAGING STUDIES CT scan of abdomen and pelvis performed yesterday revealed inhomogeneous-appearing liver with no lesions. There is no biliary ductal dilation. Bile duct measures 7 mm. No stones and a contracted gallbladder. There was evidence of partially consolidative infiltrates in the lower posterior lateral right lobe. No dilated bowel loops. The urinary system did not show any abnormalities. IMPRESSION Elevated liver enzymes in a pattern consistent with medication-induced injury. Once the nitrofurantoin was stopped her liver enzymes have already started correcting. No further workup is necessary. Labs can be followed periodically. I would expect to see a trend back to normal. After discharge she may follow up with Dr. Matt Castro. MD STEVE Garcia/VIKY /2:08 PM /4:57 PM
--- NOTE | 2017-08-16 19:08 | MB ---
cc: NUZHAT SALDAÑA DATE OF CONSULTATION 08/16/[address] Tapia REASON FOR CONSULTATION Evaluation of pneumonia. HISTORY OF PRESENT ILLNESS Mrs. Nicholson is an 87-year-old female with history of cancer of the breast status post lumpectomy, history of COPD. She uses oxygen off and on, uses nebulizer treatment at home. She recently developed a UTI. She was treated with Antibiotics but did not get better. She came to the hospital and she was found to have elevated liver enzymes. She had a CT scan of the abdomen done which shows partially consolidated infiltrate in the right lower lobe. No dilated loops are seen. Her CBC showed WBC count 4.7, hemoglobin 11.7, hematocrit 34.9, MCV 98, platelet count 188. Sodium 138, potassium 3.7, chloride 103, CO2 30, BUN 16, creatinine 0.80. Urine culture is pending. PAST MEDICAL HISTORY 1. Cancer of the breast 2. Urinary tract infection 3. Chronic obstructive pulmonary disease MEDICATIONS Currently taking 1. Rocephin 1 gram a day. 2. Enalapril 2.5 mg twice a day 3. Ambien 5 mg at nighttime. 4. Lovenox 30 mg a day 5. Zofran p.r.n. ALLERGIES SULFA SOCIAL HISTORY She did not work much. She has no history of smoking, but has second hand smoke exposure. She was and left him and then she another man who . FAMILY HISTORY She has four children. REVIEW OF SYSTEMS She lives along, able to take care of house. She is up, around and active. No deep venous thrombosis. No pulmonary embolism. PHYSICAL EXAMINATION GENERAL: Elderly female weak, not in acute distress. VITAL SIGNS: Blood pressure 137/74, heart rate 83, respiration 18, temperature 98.1 HEENT: Pupils are equal and reactive to light. Oral mucosa and nasal mucosa normal. NECK: Supple. JVP not raised. CHEST: Equal bilaterally. She has rales at the bases. CARDIOVASCULAR: S1, S2 normal. ABDOMEN: Benign. EXTREMITIES: No edema. ASSISTANT SUPERINTENDENT: She is alert and oriented x3. No focal deficit. IMPRESSION 1. Right basal infiltrate 2. Chronic obstructive pulmonary disease 3. Abnormal liver enzymes, elevated possibly because of medication 4. Urinary tract infection 5. History of cancer of the breast. PLAN I discussed with the patient we will continue Rocephin. Give her aerosol treatment with albuterol and Atrovent. Supplement her oxygen. Monitor her liver enzymes. Further treatment will depend on the course in the hospital. Thank you, Dr. Tapia, for this consultation. MD MARY BETH Arriola/ /6:16 PM /6:29 PM JOCY
[2017-08-16] MEDS: RESP: ALBUTEROL 2.5 MG/IPRATROPIUM 0.5 MG NEB (SCH) NEB (21:07)
[2017-08-16] MEDS: ENOXAPARIN SODIUM 30 MG/0.3 ML SYRINGE SQ SCH (21:51)
[2017-08-17] VITALS: BP 145/65; PULSE 61; RESP 18; TEMP 97.8; O2SAT 99
[2017-08-17] MEDS: SODIUM CHLOR 0.45% 1000 ML INJ 1,000 ML IV SCH (02:11)
[2017-08-17] MEDS: RESP: ALBUTEROL 2.5 MG/IPRATROPIUM 0.5 MG NEB (SCH) NEB ×2 (03:08→10:00)
[2017-08-17 06:07] VITALS: BP 135/73; PULSE 60; RESP 18; TEMP 97.9; O2SAT 97
[2017-08-17 08:10] VITALS: BP 178/83; PULSE 56; RESP 17; TEMP 98; O2SAT 100
--- NOTE | 2017-08-17 09:10 | RADRPT ---
EXAM DATE/TIME: 08/17/2017 08:42 [facility] COMPARISON: No previous studies available for comparison. INDICATIONS : Short of Breath MEDICAL HISTORY : Carcinoma, breast. SURGICAL HISTORY : None. ENCOUNTER: Subsequent ACUITY: 3 days PAIN SCORE: 0/10 LOCATION: Bilateral chest FINDINGS: Coarse parenchymal changes right base. Cardiomegaly with mild interstitial edema. Pr lumbar scolios is. Mastectomy on the left with surgical clips left axilla. CONCLUSION: Mild interstitial edema. Marked scoliosis. Chago Trujillo MD FACR on August 17, 2017 at 9:05 Board Certified Radiologist. This report was verified electronically.
[2017-08-17] MEDS: cefTRIAXone INJ 1,000 MG in SODIUM CHLORIDE 0.9% INJ 100 ML IV SCH (09:27)
[2017-08-17] MEDS: ENALAPRIL MALEATE 2.5 MG TAB PO SCH (09:28)
[2017-08-17] MEDS: DOCUSATE SODIUM 50 MG/SENNA 8.6 MG TAB PO SCH (09:28)
[2017-08-17 09:59] LABS: AUTOMATED NEUTROPHIL # 2.2 TH/MM3 (1.8-7.7); BASOPHIL # 0.1 TH/MM3 (0-0.2); BASOPHIL % 1.2 % (0.0-2.0); EOSINOPHIL # 0.7 TH/MM3 (0-0.4); HEMATOCRIT 35.1 % (35.0-46.0); HEMO FLAGS DIFF FINAL; LYMPH % 23.6 % (9.0-44.0); MEAN CELL VOLUME 98.8 FL (80.0-100.0); MEAN CORPUSCULAR HEMOGLOBIN 33.4 PG (27.0-34.0); MEAN CORPUSCULAR HGB CONC 33.8 % (32.0-36.0); MONO % 8.6 % (0.0-8.0); NEUT % 50.6 % (16.0-70.0); PLATELET COUNT 199 TH/MM3 (150-450); RED BLOOD COUNT 3.55 MIL/MM3 (4.00-5.30); RED CELL DISTRIBUTION WIDTH 13.8 % (11.6-17.2); WHITE BLOOD COUNT 4.4 TH/MM3 (4.0-11.0)
[2017-08-17 10:22] LABS: BICARBONATE 32.5 MEQ/L (21.0-32.0)
[2017-08-17] MEDS ORDERED: CEFUROXIME AXETIL 500 MG TAB PO SCH (10:30)
--- NOTE | 2017-08-17 10:43 | HHI.DS ---
Discharge Summary Admission Date Aug 15, 2017 at 19:43 Admitting Diagnosis UTI/failure to outpatient therapy/elevated LFTs/weakness Brief History pt treated as an op with macrobid but continued to decline presented to ED weak and frail admitted for uti CBC/BMP: 08/17/17 0945 08/17/17 0945 Significant Findings Laboratory Tests Test 08/15/17 17:30 08/15/17 17:35 08/16/17 10:10 08/17/17 09:45 Urine Turbidity HAZY (CLEAR) Urine Occult Blood TRACE (NEG) Urine Leukocyte Esterase LARGE (NEG) Urine WBC 8 /hpf (0-5) Urine Bacteria OCC /hpf (NONE) Red Blood Count 3.78 MIL/MM3 (4.00-5.30) 3.55 MIL/MM3 (4.00-5.30) 3.55 MIL/MM3 (4.00-5.30) Eosinophils (%) (Auto) 13.4 % (0.0-4.0) 23.3 % (0.0-4.0) 16.0 % (0.0-4.0) Lymphocytes # (Auto) 0.8 TH/MM3 (1.0-4.8) 0.7 TH/MM3 (1.0-4.8) Eosinophils # (Auto) 1.0 TH/MM3 (0-0.4) 1.1 TH/MM3 (0-0.4) 0.7 TH/MM3 (0-0.4) Activated Partial Thromboplast Time 22.6 SEC (24.3-30.1) Random Glucose 112 MG/DL (74-106) 118 MG/DL (74-106) Albumin 3.0 GM/DL (3.4-5.0) 2.8 GM/DL (3.4-5.0) Alkaline Phosphatase 370 U/L (45-117) 336 U/L (45-117) Aspartate Amino Transf (AST/SGOT) 195 U/L (15-37) 99 U/L (15-37) Alanine Aminotransferase (ALT/SGPT) 173 U/L (10-53) 136 U/L (10-53) Anion Gap 4 MEQ/L (5-15) Estimat Glomerular Filtration Rate 68 ML/MIN (>89) Troponin I LESS THAN 0.02 NG/ML Hematocrit 34.9 % (35.0-46.0) Monocytes (%) (Auto) 8.6 % (0.0-8.0) Potassium Level 3.0 MEQ/L (3.5-5.1) Carbon Dioxide Level 32.5 MEQ/L (21.0-32.0) Imaging Last Impressions Chest X-Ray 08/17/17 0000 Signed Impressions: Service Date/Time: Thursday, August 17, 2017 08:42 - CONCLUSION: Mild interstitial edema. Marked scoliosis. Chago Trujillo MD FACR Abdomen/Pelvis CT 08/15/17 1811 Signed Impressions: Service Date/Time: July 18:35 - CONCLUSION: 1. Partially consolidative infiltrates in the lower posterior and lateral right lung. 2. No dilated loops of small bowel. Wm Quispe MD Hospital Course pt did well cough improved cxr stable lab stable dc iv abx and continue rx po ceftin O2 sat 90% room air ambulates safely will dc home with family O2 prn ceftin 500mg bid fu GRW next week Pt Condition on Discharge: Stable Discharge Disposition: Discharge Home Discharge Instructions DIET: Follow Instructions for: As Tolerated, No Restrictions Speech Therapy-Diet Recommenda: Regular Activities you can perform: Regular-No Restrictions Activities to avoid: Driving for 24 hrs Additional Information ceftin 500 bid continue enalapril dc atorvastatin hold Kobe Troy DO Aug 17, 2017 10:43
== END 2017-08-17 12:30 | disposition home or self-care (01) | DRG 690 ==
LOC: NEPE 16:43 → NEDA 19:24 → OBSVTOIN 19:43 → N04A 21:49
PROVIDERS: ADMIT Family Medicine; ATTEND Family Medicine
DX: N39.0 Urinary tract infection, site not specified (principal); J44.9 Chronic obstructive pulmonary disease, unspecified; K71.8 Toxic liver disease with other disorders of liver; I10 Essential (primary) hypertension; I25.10 Atherosclerotic heart disease of native coronary artery without angina pectoris; R91.8 Other nonspecific abnormal finding of lung field; R79.89 Other specified abnormal findings of blood chemistry; M19.90 Unspecified osteoarthritis, unspecified site; F32.9 Major depressive disorder, single episode, unspecified; T37.8X5A Adverse effect of other specified systemic anti-infectives and antiparasitics, initial encounter; Z77.22 Contact with and (suspected) exposure to environmental tobacco smoke (acute) (chronic); Z85.3 Personal history of malignant neoplasm of breast; Z88.2 Allergy status to sulfonamides; Z92.3 Personal history of irradiation
CPT/HCPCS: 71010; 71020; 74177; 80048; 80053; 80076; 81001; 82550; 83605; 83690; 83735; 84484; 85025; 85610; 85730; 87086; 93005; 94640; 94664; J0696; J1650; J2405; J7040; Q9967

== ENCOUNTER → 2017-10-07 | Outpatient (CLI) | payer MEDICARE, BC ==
[~2017-10-07] MED LIST changes: -ARMO30TA PO; -ATOR10TA15 PO; -CHOL50006; +ENAL2.5T PO; -GABA300C5 PO; -TRIA1SPR6 EACH NARE; -TYLETAB34 PO
[2017-10-07 09:50] LABS: AUTOMATED NEUTROPHIL # 1.9 TH/MM3 (1.8-7.7); BASOPHIL # 0.1 TH/MM3 (0-0.2); BASOPHIL % 1.4 % (0.0-2.0); EOSINOPHIL # 0.5 TH/MM3 (0-0.4); EOSINOPHIL % 10.7 % (0.0-4.0); HEMATOCRIT 35.9 % (35.0-46.0); HEMOGLOBIN 12.1 GM/DL (11.6-15.3); LYMPH % 36.4 % (9.0-44.0); LYMPHOCYTE # 1.6 TH/MM3 (1.0-4.8); MEAN CELL VOLUME 97.8 FL (80.0-100.0); MEAN CORPUSCULAR HEMOGLOBIN 32.8 PG (27.0-34.0); MEAN CORPUSCULAR HGB CONC 33.6 % (32.0-36.0); MEAN PLATELET VOLUME 9.4 FL (7.0-11.0); MONO % 10.4 % (0.0-8.0); MONOCYTE # 0.5 TH/MM3 (0-0.9); NEUT % 41.1 % (16.0-70.0); PLATELET COUNT 176 TH/MM3 (150-450); RED BLOOD COUNT 3.67 MIL/MM3 (4.00-5.30); RED CELL DISTRIBUTION WIDTH 13.7 % (11.6-17.2); WHITE BLOOD COUNT 4.5 TH/MM3 (4.0-11.0)
[2017-10-07 10:11] LABS: ALBUMIN 3.3 GM/DL (3.4-5.0); AST (GOT) 20 U/L (15-37); BICARBONATE 29.1 MEQ/L (21.0-32.0); BLOOD UREA NITROGEN 17 MG/DL (7-18); CALCIUM 9.6 MG/DL (8.5-10.1); CHLORIDE 104 MEQ/L (98-107); CREATININE 0.74 MG/DL (0.50-1.00); GLOMERULAR FILTRATION RATE 74 ML/MIN (>89); GLUCOSE,FASTING 84 MG/DL (74-99); SODIUM (NA) 140 MEQ/L (136-145)
[2017-10-07 10:13] LABS: ALT (GPT) 17 U/L (10-53); CHOLESTEROL 209 MG/DL (120-200); TRIGLYCERIDES 54 MG/DL (42-150)
[2017-10-07 10:23] LABS: ALKALINE PHOSPHATASE 103 U/L (45-117); CHOLESTEROL/ HDL RATIO 2.91 RATIO; HDL CHOLESTEROL 71.8 MG/DL (40.0-60.0); LDL CHOLESTEROL 126 MG/DL (0-99); THYROXINE (T4) 7.1 MCG/DL (4.8-13.9); TOTAL BILIRUBIN ADULT 0.5 MG/DL (0.2-1.0); TOTAL PROTEIN 7.7 GM/DL (6.4-8.2)
== END ==
LOC: PLAB 06:53
PROVIDERS: ATTEND Family Medicine
DX: I10 Essential (primary) hypertension (principal); E78.2 Mixed hyperlipidemia; E03.8 Other specified hypothyroidism; Z79.899 Other long term (current) drug therapy
CPT/HCPCS: 36415; 80053; 80061; 84436; 84443; 84480; 85025

== ENCOUNTER → 2017-12-04 | Outpatient (CLI) | payer MEDICARE, BC ==
--- NOTE | 2017-12-06 09:16 | RSPPFT ---
DATE OF PROCEDURE: 12/04/17 COMMENTS: Spirometry with FVC of 1.7 predicted 2.1, FEV1 of 1.5 predicted 1.4, FEV1/FVC ratio 88% predicted 80%. Lung volumes are within the predicted range. DLCO is mildly decreased but within the predicted range when corrected for alveolar volume. IMPRESSION:
== END ==
LOC: HRSP 09:53
PROVIDERS: ATTEND Internal Medicine Pulmonary Disease
DX: J47.9 Bronchiectasis, uncomplicated (principal)
CPT/HCPCS: 94060; 94618; 94726; 94729

== ENCOUNTER → 2017-12-31 | Outpatient (CLI) | payer MEDICARE, BC ==
[2017-12-31 10:14] LABS: AUTOMATED NEUTROPHIL # 2.4 TH/MM3 (1.8-7.7); BASOPHIL # 0.1 TH/MM3 (0-0.2); BASOPHIL % 1.2 % (0.0-2.0); EOSINOPHIL # 0.5 TH/MM3 (0-0.4); EOSINOPHIL % 10.4 % (0.0-4.0); HEMATOCRIT 36.2 % (35.0-46.0); HEMOGLOBIN 11.9 GM/DL (11.6-15.3); LYMPH % 29.5 % (9.0-44.0); LYMPHOCYTE # 1.4 TH/MM3 (1.0-4.8); MEAN CELL VOLUME 98.8 FL (80.0-100.0); MEAN CORPUSCULAR HEMOGLOBIN 32.6 PG (27.0-34.0); MEAN PLATELET VOLUME 9.4 FL (7.0-11.0); MONO % 9.2 % (0.0-8.0); MONOCYTE # 0.4 TH/MM3 (0-0.9); NEUT % 49.7 % (16.0-70.0); PLATELET COUNT 173 TH/MM3 (150-450); RED BLOOD COUNT 3.66 MIL/MM3 (4.00-5.30); WHITE BLOOD COUNT 4.8 TH/MM3 (4.0-11.0)
[2017-12-31 10:17] LABS: ALBUMIN 3.4 GM/DL (3.4-5.0); ALT (GPT) 19 U/L (10-53); AST (GOT) 21 U/L (15-37); BICARBONATE 30.3 MEQ/L (21.0-32.0); BLOOD UREA NITROGEN 21 MG/DL (7-18); CALCIUM 9.4 MG/DL (8.5-10.1); CHLORIDE 106 MEQ/L (98-107); CREATININE 0.73 MG/DL (0.50-1.00); GLOMERULAR FILTRATION RATE 75 ML/MIN (>89); GLUCOSE,FASTING 88 MG/DL (74-99); SODIUM (NA) 142 MEQ/L (136-145)
[2017-12-31 10:18] LABS: CHOLESTEROL 202 MG/DL (120-200)
[2017-12-31 10:20] LABS: ALKALINE PHOSPHATASE 95 U/L (45-117); CHOLESTEROL/ HDL RATIO 2.96 RATIO; HDL CHOLESTEROL 68.2 MG/DL (40.0-60.0); LDL CHOLESTEROL 124 MG/DL (0-99); TOTAL BILIRUBIN ADULT 0.4 MG/DL (0.2-1.0); TOTAL PROTEIN 7.7 GM/DL (6.4-8.2); TRIGLYCERIDES 49 MG/DL (42-150)
== END ==
LOC: PLAB 06:54
PROVIDERS: ATTEND Family Medicine
DX: I10 Essential (primary) hypertension (principal); E78.2 Mixed hyperlipidemia; Z79.899 Other long term (current) drug therapy
CPT/HCPCS: 36415; 80053; 80061; 85025